=== PATIENT | female | born 1985 | race Hispanic/Latino ===

== ENCOUNTER 2023-08-27 14:08 | Outpatient (CLI) | payer OTHER, SELFPAY | END 2023-08-27 14:09 | disposition home or self-care (01) | LOC: CSHULT 14:08 | PROVIDERS: ATTEND Family Medicine | DX: O41.03X0 Oligohydramnios, third trimester, not applicable or unspecified (principal); Z3A.31 31 weeks gestation of pregnancy; Z3A.32 32 weeks gestation of pregnancy | CPT/HCPCS: 76815 ==